=== PATIENT | male | born 1995 | race Caucasian/White ===

== ENCOUNTER 2018-04-23 10:22 | Observation (INO) | payer BC ==
[~2018-04-23] VITALS: Ht 190.5 cm; Wt 89.0 kg
[2018-04-23 10:24] VITALS: Ht 190.5 cm; Wt 89.0 kg
[2018-04-23] MEDS ORDERED: SODIUM CHLORIDE 0.9% 1000ML 1,000 ML IV STA (10:56)
[2018-04-23] MEDS ORDERED: OPTIRAY 320 IV PRN (11:00)
[2018-04-23 11:24] LABS: BASO % 0.3 %; BASO ABS # 0.02 K/uL (0-0.2); EOS % 1.3 %; EOS ABS # 0.09 K/uL (0-0.5); HEMATOCRIT 47.3 % (42-52); HEMOGLOBIN 16.6 g/dL (14.0-18.0); IG# 0.01 K/uL (0.00-0.02); LYMPH % 24.9 %; LYMPH ABS # 1.75 K/uL (1.2-3.4); MEAN CELL VOLUME 89.6 fL (80-100); MEAN CORPUSCULAR HEMOGLOBIN 31.4 pg (25-34); MEAN CORPUSCULAR HGB CONC 35.1 g/dl (32-36); MEAN PLATELET VOLUME 10.1 fL (7.4-10.4); MONO % 9.1 %; MONO ABS # 0.64 K/uL (0.11-0.59); NEUT % 64.3 %; NEUT ABS # 4.51 K/uL (1.4-6.5); PLATELET COUNT 220 K/uL (130-400); RED CELL DISTRIBUTION WIDTH CV 12.5 % (11.5-14.5); RED CELL DISTRIBUTION WIDTH SD 40.6 fL (36.4-46.3); WHITE BLOOD COUNT 7.02 K/uL (4.8-10.8)
[2018-04-23 11:52] LABS: ALBUMIN 4.2 gm/dl (3.4-5.0); CALCIUM 9.1 mg/dl (8.5-10.1); CREATININE 1.25 mg/dl (0.60-1.40); POTASSIUM 3.9 mmol/L (3.5-5.1); TOTAL PROTEIN 7.9 gm/dl (6.4-8.2)
--- NOTE | 2018-04-23 12:38 | DIAGNOSTIC IMAGING REPORT ---
ADDENDUM 1.. FINDINGS: The final sentence stating possible small right ovarian cyst should be deleted Electronically signed by: Juan Aranda M.D. 04/24/2018 4:16 PM Dictated Date/Time: 04/24/2018 4:16 PM ORIGINAL REPORT ABD/PELVIS IV CONTRAST ONLY CT DOSE: 341.62 mGy.cm HISTORY: Pain RLQ abd pain TECHNIQUE: Multiaxial CT images of the abdomen and pelvis were performed following the use of intravenous contrast. A dose lowering technique was utilized adhering to the principles of ALARA. COMPARISON STUDY: None. FINDINGS: Lung bases are clear. Liver spleen and pancreas are uniform. Kidneys negative for hydronephrosis. Bowel pattern within the abdomen and pelvis is nonobstructive. The appendix is mildly distended to 9 mm. There is moderate wall thickening with a trace amount of periappendiceal infiltrative change. No evidence for abscess collection or obstruction area in no significant free fluid within the pelvic cul-de-sac. Possible small right ovarian cyst. IMPRESSION: 1. Acute appendicitis. 2. The appendix has a 9 mm transaxial diameter and is medial to the cecum. Trace periappendiceal infiltrative change. 3. No evidence for abscess collection or obstruction. 4. Study is otherwise negative. The above report was generated using voice recognition software. It may contain grammatical, syntax or spelling errors. Electronically signed by: Juan Aranda M.D. 04/23/2018 12:36 PM Dictated Date/Time: 04/23/2018 12:33 PM
[2018-04-23] MEDS ORDERED: KETOROLAC TROMETHAMINE 30 MG/ML VIAL ONE (13:51)
[2018-04-23] MEDS ORDERED: MIDAZOLAM HCL 1 MG/ML 2ML VIAL ONE (13:51)
[2018-04-23] MEDS ORDERED: DEXAMETHASONE SOD INJ 4 MG/ML VIAL ONE ×2 (13:51→14:44)
[2018-04-23] MEDS ORDERED: ROCURONIUM BROMIDE 10 MG/ML 5 ML VIAL ONE (13:51)
[2018-04-23] MEDS ORDERED: LARYING-O-JET KIT (LTA) ONE (13:51)
[2018-04-23] MEDS ORDERED: NEOSTIGMINE METHYLSULFATE 5 MG/5 ML SYR ONE (13:51)
[2018-04-23] MEDS ORDERED: LIDOCAINE HCL 2% 2 ML VIAL (20MG/ML) ONE (13:51)
[2018-04-23] MEDS ORDERED: GLYCOPYRROLATE INJ 0.2 MG/ML VIAL ONE (13:51)
[2018-04-23] MEDS ORDERED: ONDANSETRON INJ 2 MG/ML 2 ML VIAL ONE (13:51)
[2018-04-23] MEDS ORDERED: FENTANYL CITRATE INJ 50 MCG/1 ML 2 ML VIAL ONE (13:51)
[2018-04-23] MEDS ORDERED: PROPOFOL IV EMULSION 10 MG/ML 20 ML VIAL ONE (13:51)
[2018-04-23] MEDS ORDERED: CEFAZOLIN SOD 1 GM VIAL ONE (13:52)
[2018-04-23] MEDS ORDERED: HEPARIN SOD (PORCINE) 1000 UNIT/ML 10 ML VIAL ONE (13:52)
[2018-04-23] MEDS ORDERED: BUPIVACAINE 0.5 % 5 MG/1 ML PF 10ML VIAL ONE (13:53)
[2018-04-23] MEDS ORDERED: ONDANSETRON INJ 2 MG/ML 2 ML VIAL IV PRN ×2 (14:00→15:45)
[2018-04-23] MEDS ORDERED: ATROPINE SULFATE 0.1 MG/ML 5ML SYR IV PRN (14:00)
[2018-04-23] MEDS ORDERED: EpHEDrine SULFATE INJ 50 MG/ML AMP IV PRN (14:00)
[2018-04-23] MEDS ORDERED: FENTANYL CITRATE INJ 50 MCG/1 ML 2 ML VIAL IV PRN (14:00)
--- NOTE | 2018-04-23 14:02 | History and Physical ---
History & Physical Date & Time of Service: Apr 23, 2018 at 13:55 Chief Complaint: Abd Pain Lrq Primary Care Physician: No Doctor, Assigned History of Present Illness Source: patient, family This is a 22-year-old male who presented to the emergency room with a complaint of right lower quadrant pain. He was on a hiking trip when he began to develop discomfort throughout his abdomen and. That was 2 days ago. The pain then increased in intensity such that it was quite severe yesterday. The severity of the discomfort has decreased and is now only about a 1 or 2 out of 10 when he is lying still. He has never had pain like this before. The pain did not radiate. The patient had no associated nausea or vomiting. There was no fever or chills. He has had no diarrhea or constipation although he has not had a bowel movement for the last 2 days. There is no melena or hematochezia. CT scan of the abdomen and pelvis demonstrates a 9 mm appendix with moderately thickened wall and trace. Appendiceal inflammatory change. Social History Smoking Status: Never Smoker Smokeless Tobacco Use: No Alcohol Use: none Allergies Coded Allergies: No Known Allergies (Unverified , 04/23/18) Home Medications No Active Prescriptions or Reported Meds Review of Systems Constitutional: No fever, No chills Respiratory: No cough, No sputum Cardiovascular: No chest pain Abdomen: + problem reported (as per HPI) Genitourinary - Male: + problem reported (as per HPI) Endocrine: No fatigue Integumentary: No rash, No itch Physical Exam Vital Signs Date Time Temp Pulse Resp B/P (MAP) Pulse Ox O2 Delivery O2 Flow Rate FiO2 04/23/18 13:48 86 16 138/66 96 04/23/18 12:38 81 16 138/66 100 Room Air 04/23/18 10:24 36.8 68 16 128/78 99 Room Air General Appearance: WD/WN Head: normocephalic, atraumatic Respiratory/Chest: chest non-tender, lungs clear Abdomen/GI: normal bowel sounds, soft, + tenderness (RLQ) Back: normal inspection, no CVA tenderness Skin: normal color, warm/dry Diagnostics Laboratory Results Results Past 24 Hours Test 04/23/18 11:08 04/23/18 12:01 Range/Units White Blood Count 7.02 4.8-10.8 K/uL Red Blood Count 5.28 4.7-6.1 M/uL Hemoglobin 16.6 14.0-18.0 g/dL Hematocrit 47.3 42-52 % Mean Corpuscular Volume 89.6 80-100 fL Mean Corpuscular Hemoglobin 31.4 25-34 pg Mean Corpuscular Hemoglobin Concent 35.1 32-36 g/dl Platelet Count 220 130-400 K/uL Mean Platelet Volume 10.1 7.4-10.4 fL Neutrophils (%) (Auto) 64.3 % Lymphocytes (%) (Auto) 24.9 % Monocytes (%) (Auto) 9.1 % Eosinophils (%) (Auto) 1.3 % Basophils (%) (Auto) 0.3 % Neutrophils # (Auto) 4.51 1.4-6.5 K/uL Lymphocytes # (Auto) 1.75 1.2-3.4 K/uL Monocytes # (Auto) 0.64 0.11-0.59 K/uL Eosinophils # (Auto) 0.09 0-0.5 K/uL Basophils # (Auto) 0.02 0-0.2 K/uL RDW Standard Deviation 40.6 36.4-46.3 fL RDW Coefficient of Variation 12.5 11.5-14.5 % Immature Granulocyte % (Auto) 0.1 % Immature Granulocyte # (Auto) 0.01 0.00-0.02 K/uL Sodium Level 137 136-145 mmol/L Potassium Level 3.9 3.5-5.1 mmol/L Chloride Level 103 98-107 mmol/L Carbon Dioxide Level 26 21-32 mmol/L Anion Gap 8.0 3-11 mmol/L Blood Urea Nitrogen 14 7-18 mg/dl Creatinine 1.25 0.60-1.40 mg/dl Est Creatinine Clear Calc Drug Dose 111.7 ml/min Estimated GFR () 94.8 Estimated GFR (Non- 81.8 BUN/Creatinine Ratio 11.0 10-20 Random Glucose 83 70-99 mg/dl Calcium Level 9.1 8.5-10.1 mg/dl Total Bilirubin 0.8 0.2-1 mg/dl Direct Bilirubin 0.3 0-0.2 mg/dl Aspartate Amino Transf (AST/SGOT) 29 15-37 U/L Alanine Aminotransferase (ALT/SGPT) 28 12-78 U/L Alkaline Phosphatase 57 45-117 U/L Total Protein 7.9 6.4-8.2 gm/dl Albumin 4.2 3.4-5.0 gm/dl Lipase 98 73-393 U/L Urine Color YELLOW Urine Appearance CLEAR CLEAR Urine pH 5.5 4.5-7.5 Urine Specific [place] 1.015 1.000-1.030 Urine Protein NEG NEG Urine Glucose (UA) NEG NEG Urine Ketones NEG NEG Urine Occult Blood NEG NEG Urine Nitrite NEG NEG Urine Bilirubin NEG NEG Urine Urobilinogen NEG NEG Urine Leukocyte Esterase NEG NEG Diagnostic Radiology ABD/PELVIS IV CONTRAST ONLY CT DOSE: 341.62 mGy.cm HISTORY: Pain RLQ abd pain TECHNIQUE: Multiaxial CT images of the abdomen and pelvis were performed following the use of intravenous contrast. A dose lowering technique was utilized adhering to the principles of ALARA. COMPARISON STUDY: None. FINDINGS: Lung bases are clear. Liver spleen and pancreas are uniform. Kidneys negative for hydronephrosis. Bowel pattern within the abdomen and pelvis is nonobstructive. The appendix is mildly distended to 9 mm. There is moderate wall thickening with a trace amount of periappendiceal infiltrative change. No evidence for abscess collection or obstruction area in no significant free fluid within the pelvic cul-de-sac. Possible small right ovarian cyst. IMPRESSION: 1. Acute appendicitis. 2. The appendix has a 9 mm transaxial diameter and is medial to the cecum. Trace periappendiceal infiltrative change. 3. No evidence for abscess collection or obstruction. 4. Study is otherwise negative. Impression Assessment and Plan This patient's history, physical findings, laboratories and CT findings are consistent with appendicitis. I reviewed the radiology reports and pictures. I have discussed with them a laparoscopic appendectomy versus treatment initially with antibiotics. I explained the laparoscopic approach and the possible need to convert to an open procedure. I explained the possible complications associated with the 2 options and with those procedures. The patient wishes to go ahead with surgery and has signed a consent form. Resuscitation Status VTE Prophylaxis Will order VTE Prophylaxis: No Reason for no VTE drug order: Treatment not indicated Reason no Mechanical VTE Order: Treatment not indicated
[2018-04-23] MEDS ORDERED: CEFOXITIN SOD 1 GM VIAL ONE (14:41)
[2018-04-23] MEDS ORDERED: SUCCINYLCHOLINE CHLORIDE 20 MG/ML 10 ML VIAL IV ONE (14:44)
--- NOTE | 2018-04-23 15:34 | [facility] Post Operative Brief Note ---
Immediate Operative Summary Operative Date Apr 23, 2018. Pre-Operative Diagnosis Acute appendicitis Post-Operative Diagnosis Same as preop Procedure(s) Performed Laparoscopic appendectomy Surgeon Dr. Cheney Platform Inspector Surgeon(s) VIOLETTA Leyva Estimated Blood Loss 5 ml Findings Consistent with Post-Op Diagnosis Specimens A: Appendix Drains None Anesthesia Type General Complication(s) none
[2018-04-23] MEDS ORDERED: MoRPHine SULFATE 4 MG/ML 1 ML CARP\\VIAL IV PRN (15:45)
--- NOTE | 2018-04-23 16:19 | Anesthesiology Progress Note ---
Anesthesia Post Op Note Date & Time Apr 23, 2018 at 16:18 Vital Signs Pain Intensity: 0 Vital Signs Past 12 Hours Date Time Temp Pulse Resp B/P (MAP) Pulse Ox O2 Delivery O2 Flow Rate FiO2 04/23/18 16:15 61 15 125/63 100 Oxymask 10 04/23/18 16:05 68 20 122/66 100 Oxymask 10 04/23/18 15:56 36.5 105 18 128/66 100 Oxymask 10 04/23/18 13:48 86 16 138/66 96 04/23/18 12:38 81 16 138/66 100 Room Air 04/23/18 10:24 36.8 68 16 128/78 99 Room Air Notes Mental Status: alert / awake / arousable, participated in evaluation Pt Amnestic to Procedure: Yes Nausea / Vomiting: adequately controlled Pain: adequately controlled Airway Patency, RR, SpO2: stable & adequate BP & HR: stable & adequate Hydration State: stable & adequate Anesthetic Complications: no major complications apparent
[2018-04-23 16:45] VITALS: BP 123/63; PULSE 70; TEMP 37; O2SAT 100
[2018-04-23] MEDS ORDERED: IV FLUIDS COMPLETED PRN (16:45)
[2018-04-23 17:15] VITALS: BP 124/55; PULSE 75; TEMP 37; O2SAT 100
[2018-04-23 17:44] VITALS: BP 113/55; PULSE 72; TEMP 37.1; O2SAT 100
[2018-04-23] MEDS: D5W AND 1/2NSS + 20MEQ KCL 1,000 ML IV SCH (17:47)
[2018-04-23] MEDS: OXYCODONE/ACETAMINOPHEN 5-325 TAB PO PRN ×2 (18:21→22:16)
[2018-04-23 19:06] VITALS: BP 121/75; PULSE 88; TEMP 37.1; O2SAT 96
[2018-04-23 19:51] VITALS: BP 135/68; PULSE 88; TEMP 36.8; O2SAT 96
[2018-04-23 23:00] VITALS: BP 104/63; PULSE 59; TEMP 37; O2SAT 98
--- NOTE | 2018-04-24 01:13 | OPERATIVE REPORT ---
DATE OF OPERATION: 04/23/2018 PREOPERATIVE DIAGNOSIS: Appendicitis. POSTOPERATIVE DIAGNOSIS: Appendicitis. PROCEDURE: Laparoscopic appendectomy. SURGEON: Juan Cheney MD INTERNATIONAL SPECIALIST: Delores Steve PA-C. FINDINGS: The appendix was markedly dilated in its distal three-fourths. The proximal 1-1.5 cm was normal. The appendix was rather short. The appendix was adherent to the lateral and posterior abdominal rashid and there was thickening of the peritoneum over the mesoappendix with some adherence to the terminal ileum and cecum. There was no evidence of perforation or abscess. The remainder of the visible bowel appeared normal. TECHNIQUE: The patient was given a general anesthetic and the area was prepped and draped in the usual sterile fashion. Transverse incision was made below the umbilicus, carried down through the subcutaneous tissue to the fascia, which was grasped with 2 Vee clamps and incised between. The peritoneum was identified, incised and introducer was placed bluntly. The abdomen was then insufflated to a pressure of 15 mmHg with carbon dioxide. The lower midline introducer was placed under direct vision through small skin incision. Traction was placed superomedially on the cecum and the appendix was easily seen. The left lower quadrant introducer was placed under direct vision. Traction was then able to be placed anteriorly on the cecum and the adhesions to the lateral and posterior abdominal wall were taken down using blunt dissection. The peritoneum over the mesoappendix was thickened. I was eventually able to establish a plane in the mid portion of the mesoappendix and that portion of the mesoappendix was divided using Endo-AZAM stapler, which allowed me to further elevate the appendix. That allowed me to identify the base of the appendix. Again, the peritoneum was thickened there and I had to peel it away from the appendix peeling it towards the bowel so as to not injure it. That allowed me to identify the base of the appendix and establish a plane between the mesoappendix and the base of the appendix. The mesoappendix was divided using the Endo-AZAM stapler. That allowed me to completely elevate the appendix and confirmed that I was at the base. I was able to easily identify the appendix cecal junction. The appendix was then amputated using the Endo-AZAM. It was placed into an Endobag and brought out through the lower incision on the left. That introducer was replaced. The right lower quadrant was irrigated and irrigation removed. The staple lines were inspected and there was no bleeding. Further irrigation was performed and removed. Any irrigation that entered the right upper quadrant was removed and any irrigation in the pelvis was removed. The gas was allowed to escape and the introducers were removed. The fascia of the umbilical and left lower quadrant distal sites was closed with interrupted 0 Vicryl and skin of all the incisions was closed with 4-0 Monocryl in either an interrupted or running subcuticular fashion. The skin was anesthetized with 0.5% Marcaine. The skin was cleansed, dried, benzoin placed, Steri-Strips applied. Estimated blood loss was 5 mL. Sponge, needle, and instrument counts were correct prior to closure. The patient tolerated the surgical procedure without complication and was transferred to recovery. I attest to the content of the Intraoperative Record and any orders documented therein. Any exception s are noted below.
[2018-04-24] MEDS: D5W AND 1/2NSS + 20MEQ KCL 1,000 ML IV SCH (03:24)
[2018-04-24 03:58] VITALS: BP 96/56; PULSE 68; TEMP 36.7; O2SAT 98
--- NOTE | 2018-04-24 06:38 | EMERGENCY ROOM VISIT NOTE ---
ED Visit Note First contact with patient: 10:46 Chief Complaint: Abdominal pain. History of Present Illness: Mr. Cedeno is a 22 year-old white male who ambulates into the ED complaining of right lower quadrant abdominal pain. Historically patient reports no gastrointestinal disorders or abdominal surgeries. Patient was referred to the ED from his PCPs office ([place]) for right lower quadrant pain to rule out appendicitis. Patient reports he went camping this weekend on the second day, Monday he started experiencing diffuse abdominal pain. He reports initially it was mild and increased in intensity. Initially it was a cramping sensation and then became a burning sensation. On the second day of his camping trip, Monday, he reports his pain started decreasing but became more focused in the right lower quadrant. Currently he describes his pain as a achy sensation in the right and left lower quadrants. His discomfort is slightly more prominent in the right. He currently rates his discomfort 2/10. The pain is nonradiating. The pain worsens with palpation and ambulation. He has not identified any alleviating factors related to the pain. He has not taken any medications for pain prior to arrival at the hospital. Associated with his pain he has noted a decrease in appetite. Patient denies fevers, chills, sweats, skin eruptions, skin color changes, upper respiratory tract symptoms, shortness of breath, chest pain, nausea, vomiting, diarrhea, constipation, rectal bleeding, black/tarry stools, urinary symptoms, hematuria, back/flank pain. Review of Systems: As noted above in history of present illness. All body systems were reviewed and found to be negative as noted above. Past Medical History: Patient denies. Current Medications: Patient denies. Allergies to Medications: Patient denies. Social History: Patient is currently employed; he feels safe in his home environment; he denies tobacco and alcohol use. Physical Examination: Vital Signs: Date Time Temp Pulse Resp B/P (MAP) Pulse Ox O2 Delivery O2 Flow Rate FiO2 04/23/18 13:48 86 16 138/66 96 04/23/18 12:38 81 16 138/66 100 Room Air 04/23/18 10:24 36.8 68 16 128/78 99 Room Air GENERAL: 22-year-old male in mild distress due to pain, nontoxic-appearing, afebrile and hemodynamically stable. NEUROLOGICAL: Awake, alert and oriented to person, place and time. Answering questions appropriately and following commands. Normal gait. Good hand eye coordination. SKIN: Warm, dry and pink. No soft tissue eruptions or trauma noted. HEENT: Atraumatic and normocephalic. PERRLA. Sclera white and conjunctiva pink. Oral cavity moist and pink. Pharynx is nonerythematous or edematous. Speech normal. Trachea midline. No jugular venous distention. BACK: No tenderness over the bony spine. No CVA tenderness. THORAX: Lungs sounds are clear to auscultation and equal bilaterally with symmetrical chest wall. No wheezing, rales or rhonchi. No crepitus, tenderness , subcutaneous air or deformities noted. HEART: Regular rate and rhythm. No gallops, rubs or murmurs are appreciated. ABDOMEN: Flat and soft with mild diffuse tenderness through the abdomen and moderate tenderness in the right lower quadrant over McBurney's point with guarding. Positive bowel sounds in all quadrants. No rigidity or organomegaly. EXTREMITIES: Moves all extremities well on command and with purpose. All distal neurovascular statuses are intact and equal bilaterally. ED Course: Patient is assessed as noted above. Patient's medication list was reviewed. Laboratory Testing: Test 04/23/18 11:08 04/23/18 12:01 Range/Units White Blood Count 7.02 4.8-10.8 K/uL Red Blood Count 5.28 4.7-6.1 M/uL Hemoglobin 16.6 14.0-18.0 g/dL Hematocrit 47.3 42-52 % Mean Corpuscular Volume 89.6 80-100 fL Mean Corpuscular Hemoglobin 31.4 25-34 pg Mean Corpuscular Hemoglobin Concent 35.1 32-36 g/dl Platelet Count 220 130-400 K/uL Mean Platelet Volume 10.1 7.4-10.4 fL Neutrophils (%) (Auto) 64.3 % Lymphocytes (%) (Auto) 24.9 % Monocytes (%) (Auto) 9.1 % Eosinophils (%) (Auto) 1.3 % Basophils (%) (Auto) 0.3 % Neutrophils # (Auto) 4.51 1.4-6.5 K/uL Lymphocytes # (Auto) 1.75 1.2-3.4 K/uL Monocytes # (Auto) 0.64 0.11-0.59 K/uL Eosinophils # (Auto) 0.09 0-0.5 K/uL Basophils # (Auto) 0.02 0-0.2 K/uL RDW Standard Deviation 40.6 36.4-46.3 fL RDW Coefficient of Variation 12.5 11.5-14.5 % Immature Granulocyte % (Auto) 0.1 % Immature Granulocyte # (Auto) 0.01 0.00-0.02 K/uL Sodium Level 137 136-145 mmol/L Potassium Level 3.9 3.5-5.1 mmol/L Chloride Level 103 98-107 mmol/L Carbon Dioxide Level 26 21-32 mmol/L Anion Gap 8.0 3-11 mmol/L Blood Urea Nitrogen 14 7-18 mg/dl Creatinine 1.25 0.60-1.40 mg/dl Est Creatinine Clear Calc Drug Dose 111.7 ml/min Estimated GFR () 94.8 Estimated GFR (Non- 81.8 BUN/Creatinine Ratio 11.0 10-20 Random Glucose 83 70-99 mg/dl Calcium Level 9.1 8.5-10.1 mg/dl Total Bilirubin 0.8 0.2-1 mg/dl Direct Bilirubin 0.3 0-0.2 mg/dl Aspartate Amino Transf (AST/SGOT) 29 15-37 U/L Alanine Aminotransferase (ALT/SGPT) 28 12-78 U/L Alkaline Phosphatase 57 45-117 U/L Total Protein 7.9 6.4-8.2 gm/dl Albumin 4.2 3.4-5.0 gm/dl Lipase 98 73-393 U/L Urine Color YELLOW Urine Appearance CLEAR CLEAR Urine pH 5.5 4.5-7.5 Urine Specific [place] 1.015 1.000-1.030 Urine Protein NEG NEG Urine Glucose (UA) NEG NEG Urine Ketones NEG NEG Urine Occult Blood NEG NEG Urine Nitrite NEG NEG Urine Bilirubin NEG NEG Urine Urobilinogen NEG NEG Urine Leukocyte Esterase NEG NEG IV Contrast Abdominal/Pelvic CT: Was reviewed by myself and read by the radiologist and shows evidence of an acute appendicitis with the appendix diameter of 9 mm and trace periappendiceal infiltrative changes. No evidence of abscess or obstruction. Radiological Testing: Patient was hydrated with normal saline; patient was offered pain medication and refused. Patient was reassessed multiple times during her stay in the emergency department. Patient's case was reviewed with Dr. Renteria; we agreed on diagnostic approach, treatment, disposition and plan. Patient's case was consulted with Dr. Juan Cheney, general surgery for surgical evaluation and intervention. Patient was educated about today's findings. Clinical Impression: Acute appendicitis. Decision-Making: Initially my differential diagnosis I considered acute appendicitis, constipation, kidney stone, mesenteric adenitis and other causes. Disposition and Plan: Patient be taken to the operating room for emergent surgery; please see Dr. Cheney's notes and orders for final disposition and plan.
[2018-04-24 06:59] VITALS: BP 119/69; PULSE 52; TEMP 36.7; O2SAT 100
[2018-04-24] MEDS ORDERED: DOCUSATE SODIUM 100 MG CAP PO ONE (08:30)
[2018-04-24] MEDS ORDERED: OXYC-57 PO (08:49)
--- NOTE | 2018-04-24 08:53 | Discharge Instructions ---
Discharge Instructions Date of Service Apr 24, 2018. Admission Reason for Admission: Appendicitis Discharge Discharge Diagnosis / Problem: same Discharge Goals Goal(s): Decrease discomfort, Improve function Activity Recommendations Activity Limitations: per Instructions/Follow-up section No heavy lifting over 10 pounds for 2 weeks No strenuous activity until cleared by surgeon No submerging incisions underwater for 2 weeks (no bathing, swimming, or hot tubs) No driving for 1 week or while taking narcotic pain medication or until you are pain free . Instructions / Follow-Up Instructions / Follow-Up You may shower. Leave steri strips on incisions for 7 days and then remove. They may fall off on their own that is okay. Walking and light activity is encouraged to prevent blood clots from forming in your legs You will be given prescription for narcotic pain medication (Percocet) for moderate to severe pain. Take as directed. This medication may cause drowsiness and constipation. To combat constipation: -Drink plenty of water daily, avoid foods that constipate, daily walking, and take OTC stool softener such as Colace daily or twice a day while taking Percocet - If above measures do not work, you may take Milk of magnesia or Miralax You may take Ibuprofen as needed for mild pain in between doses of Percocet. While taking Percocet, do not take Tylenol as Percocet has Tylenol in it. Follow-up in surgical office in 2 weeks, please call office at [phone] to make an appointment Current Hospital Diet Patient's current hospital diet: Regular Diet Discharge Diet Recommended Diet: Regular Diet Procedures Procedures Performed: Laparoscopic appendectomy Pending Studies Studies pending at discharge: yes List of pending studies: APpendix pathology, will be reviewed at follow up visit Medical Emergencies . Who to Call and When: Medical Emergencies: If at any time you feel your situation is an emergency, please call 911 immediately. . Non-Emergent Contact Non-Emergency issues call your: Primary Care Provider, Surgeon Call Non-Emergent contact if: you have a fever, temperature is above 101, your pain is not controlled, your pain is worsening, your pain is unusual for you, wound has increased drainage, wound has increased redness, wound has increased pain . "Provider Documentation" section prepared by Delores Steve. . [place] Drug Monitoring Program Search Results: patient reviewed within database, no issues identified
--- NOTE | 2018-04-24 08:58 | Surgery Progress Note ---
Surgery Progress Note Date of Service Apr 24, 2018. Subjective Post OP Day: 1 (s/p laparoscopic appendectomy) + feeling well, + complaints (RLQ abdominal pain, incisional pain, and gas pain into right shoulder), + ambulating, + pain controlled, + diet (regular diet), No chest pain, No SOB, No nausea, No vomiting Objective Vital Signs: Date Time Temp Pulse Resp B/P (MAP) Pulse Ox O2 Delivery O2 Flow Rate FiO2 04/24/18 06:59 36.7 52 18 119/69 (86) 100 Room Air 04/24/18 03:58 36.7 68 16 96/56 (69) 98 Room Air 04/23/18 23:11 Room Air 04/23/18 23:00 37.0 59 16 104/63 (77) 98 Room Air 04/23/18 19:51 36.8 88 16 135/68 (90) 96 Room Air 04/23/18 19:06 37.1 88 18 121/75 (90) 96 Room Air 04/23/18 17:44 37.1 72 16 113/55 (74) 100 Nasal Cannula 2.0 04/23/18 17:15 37.0 75 16 124/55 (78) 100 Nasal Cannula 2.0 04/23/18 16:45 37.0 70 16 123/63 (83) 100 Nasal Cannula 2.0 04/23/18 16:45 100 Nasal Cannula 2.0 04/23/18 16:45 100 Nasal Cannula 2.0 04/23/18 16:25 37.3 66 25 123/58 100 Nasal Cannula 2 04/23/18 16:15 61 15 125/63 100 Oxymask 10 04/23/18 16:05 68 20 122/66 100 Oxymask 10 04/23/18 15:56 36.5 105 18 128/66 100 Oxymask 10 04/23/18 13:48 86 16 138/66 96 04/23/18 12:38 81 16 138/66 100 Room Air 04/23/18 10:24 36.8 68 16 128/78 99 Room Air General Appearance: WD/WN, no apparent distress Head: normocephalic, atraumatic Neck: trachea midline Respiratory/Chest: no respiratory distress, no accessory muscle use Abdomen: non distended, soft, no organomegaly, no pulsatile mass, + tenderness (at incision sites and RLQ on palpaiton, appropriate post op) Incision(s): clean, dry, intact, findings (steri strips present) Laboratory Results: Results Past 24 Hours Test 04/23/18 11:08 04/23/18 12:01 Range/Units White Blood Count 7.02 4.8-10.8 K/uL Red Blood Count 5.28 4.7-6.1 M/uL Hemoglobin 16.6 14.0-18.0 g/dL Hematocrit 47.3 42-52 % Mean Corpuscular Volume 89.6 80-100 fL Mean Corpuscular Hemoglobin 31.4 25-34 pg Mean Corpuscular Hemoglobin Concent 35.1 32-36 g/dl Platelet Count 220 130-400 K/uL Mean Platelet Volume 10.1 7.4-10.4 fL Neutrophils (%) (Auto) 64.3 % Lymphocytes (%) (Auto) 24.9 % Monocytes (%) (Auto) 9.1 % Eosinophils (%) (Auto) 1.3 % Basophils (%) (Auto) 0.3 % Neutrophils # (Auto) 4.51 1.4-6.5 K/uL Lymphocytes # (Auto) 1.75 1.2-3.4 K/uL Monocytes # (Auto) 0.64 0.11-0.59 K/uL Eosinophils # (Auto) 0.09 0-0.5 K/uL Basophils # (Auto) 0.02 0-0.2 K/uL RDW Standard Deviation 40.6 36.4-46.3 fL RDW Coefficient of Variation 12.5 11.5-14.5 % Immature Granulocyte % (Auto) 0.1 % Immature Granulocyte # (Auto) 0.01 0.00-0.02 K/uL Sodium Level 137 136-145 mmol/L Potassium Level 3.9 3.5-5.1 mmol/L Chloride Level 103 98-107 mmol/L Carbon Dioxide Level 26 21-32 mmol/L Anion Gap 8.0 3-11 mmol/L Blood Urea Nitrogen 14 7-18 mg/dl Creatinine 1.25 0.60-1.40 mg/dl Est Creatinine Clear Calc Drug Dose 111.7 ml/min Estimated GFR () 94.8 Estimated GFR (Non- 81.8 BUN/Creatinine Ratio 11.0 10-20 Random Glucose 83 70-99 mg/dl Calcium Level 9.1 8.5-10.1 mg/dl Total Bilirubin 0.8 0.2-1 mg/dl Direct Bilirubin 0.3 0-0.2 mg/dl Aspartate Amino Transf (AST/SGOT) 29 15-37 U/L Alanine Aminotransferase (ALT/SGPT) 28 12-78 U/L Alkaline Phosphatase 57 45-117 U/L Total Protein 7.9 6.4-8.2 gm/dl Albumin 4.2 3.4-5.0 gm/dl Lipase 98 73-393 U/L Urine Color YELLOW Urine Appearance CLEAR CLEAR Urine pH 5.5 4.5-7.5 Urine Specific [place] 1.015 1.000-1.030 Urine Protein NEG NEG Urine Glucose (UA) NEG NEG Urine Ketones NEG NEG Urine Occult Blood NEG NEG Urine Nitrite NEG NEG Urine Bilirubin NEG NEG Urine Urobilinogen NEG NEG Urine Leukocyte Esterase NEG NEG Assessment & Plan POD # 1 s/p laparoscopic appendectomy -vitals stable, afebrile - abdominal pain controlled - ambulating and urinating without difficulty Plan: Discharge home today discharge instructions reviewed Rx for Percocet as needed f/u surgical office in [address] Cheney has seen and examined patient, agrees with above
[2018-04-24] MEDS: OXYCODONE/ACETAMINOPHEN 5-325 TAB PO PRN (09:23)
[2018-04-24 09:49] VITALS: BP 119/69; PULSE 52; TEMP 36.7; O2SAT 100
--- NOTE | 2018-04-24 13:46 | Anesthesiology Progress Note ---
Anesthesia Post Op Note Date & Time Apr 24, 2018 at 07:46 Vital Signs Pain Intensity: 5.0 Vital Signs Past 12 Hours Date Time Temp Pulse Resp B/P (MAP) Pulse Ox O2 Delivery O2 Flow Rate FiO2 04/24/18 09:49 36.7 52 18 100 Room Air 04/24/18 08:30 Room Air 04/24/18 06:59 36.7 52 18 119/69 (86) 100 Room Air 04/24/18 03:58 36.7 68 16 96/56 (69) 98 Room Air Notes Mental Status: alert / awake / arousable, participated in evaluation Pt Amnestic to Procedure: Yes Nausea / Vomiting: adequately controlled Pain: adequately controlled Airway Patency, RR, SpO2: stable & adequate BP & HR: stable & adequate Hydration State: stable & adequate Anesthetic Complications: no major complications apparent
--- NOTE | 2018-04-25 10:43 | Discharge Summary ---
Discharge Summary Dates Admission Date / Time: Apr 23, 2018 at 15:38 Discharge Date: Apr 24, 2018 Dispostion / Condition Discharge Disposition: Home Condition at Discharge: Good Principal Diagnosis (1) Appendicitis Problem List (1) No pertinent past medical history Consultations / Procedures Consultations: None Procedures: Laparoscopic appendectomy Vaccinations: None Pending Studies / Follow-Up Appendix pathology. Will be reviewed at follow up visit Medication Reconciliation New Medications: Oxycodone/Acetaminophen 5MG/325MG (Percocet 5MG/325MG) Tab 1 TABLET PO Q4H PRN for Pain, #18 TAB Admission HPI Per the Admitting provider: This is a 22-year-old male who presented to the emergency room with a complaint of right lower quadrant pain. He was on a hiking trip when he began to develop discomfort throughout his abdomen and. That was 2 days ago. The pain then increased in intensity such that it was quite severe yesterday. The severity of the discomfort has decreased and is now only about a 1 or 2 out of 10 when he is lying still. He has never had pain like this before. The pain did not radiate. The patient had no associated nausea or vomiting. There was no fever or chills. He has had no diarrhea or constipation although he has not had a bowel movement for the last 2 days. There is no melena or hematochezia. CT scan of the abdomen and pelvis demonstrates a 9 mm appendix with moderately thickened wall and trace. Appendiceal inflammatory change. Admission Exam Per the Admitting provider: General Appearance: WD/WN Head: normocephalic, atraumatic Respiratory/Chest: chest non-tender, lungs clear Abdomen/GI: normal bowel sounds, soft, + tenderness (RLQ) Back: normal inspection, no CVA tenderness Skin: normal color, warm/dry Hospital Course (1) Appendicitis Patient was taken to operating room for laparoscopic appendectomy possible open by Dr. Cheney. Patient was found to have acute appendicitis without perforation or abscess. Patient tolerated procedure well without any complications. Was transferred to recovery room and then to medical/surgical floor in stable condition. Post-op orders included IV fluids, PO Percocet with breakthrough IV morphine as needed for pain, regular diet, activity as tolerated , IV Zofran as needed for nausea. ON POD #1 patient was evaluated. Vitals signs stable, afebrile, tolerating regular diet, ambulating, urinating without difficulty, and pain controlled with oral pain medication. Patient was discharged home on POD #1 in stable condition. Overall hospital course was uneventful. Discharge Instructions as given to patient Copies To Primary Care Provider: No Doctor, Assigned. Problem Qualifiers (1) Appendicitis: Appendicitis type: acute appendicitis
== END 2018-04-24 11:00 | disposition home or self-care (01) ==
LOC: C.ED 10:23 → C.MSW 15:38 → ENRESERV 16:08
PROVIDERS: ADMIT Surgery; ATTEND Surgery
DX: K35.80 Unspecified acute appendicitis (principal)